=== PATIENT | male | born 1930 | race Caucasian/White ===

== ENCOUNTER 2018-07-09 05:35 | Outpatient (CLI) | payer MEDICARE ==
[~2018-07-09] VITALS: Ht 167.6 cm; Wt 72.6 kg
[2018-07-09] MEDS ORDERED: ALLO300T2 PO (12:40)
[2018-07-09] MEDS ORDERED: LEVO125T69 PO (12:46)
[2018-07-09] MEDS ORDERED: TEMA30CA PO (12:56)
[2018-07-09] MEDS ORDERED: GABA-488 PO (12:56)
[2018-07-09] MEDS ORDERED: METO-351 PO (12:56)
[2018-07-09] MEDS ORDERED: METF-397 PO (12:56)
[2018-07-09] MEDS ORDERED: SIMV80TA5 PO (12:56)
[2018-07-09] MEDS ORDERED: ASPI-586 PO (12:56)
[2018-07-09] MEDS ORDERED: MELA10TA2 PO (12:56)
[2018-07-09] MEDS ORDERED: WARF2.5T PO (12:56)
[2018-07-09] MEDS ORDERED: WARF5TAB PO (12:56)
== END 2018-07-09 13:01 | disposition home or self-care (01) ==
LOC: PREOP 05:35
PROVIDERS: ATTEND Orthopaedic Surgery
DX: Z01.818 Encounter for other preprocedural examination (principal)

== ENCOUNTER 2018-07-16 07:01 | Day surgery (SDC) | payer MEDICARE, OTHER ==
[~2018-07-16] VITALS: Ht 167.6 cm; Wt 72.6 kg
[~2018-07-16 07:01] MED LIST: ALLO300T2 PO; ASPI-586 PO; GABA-488 PO; LEVO125T69 PO; MELA10TA2 PO; METF-397 PO; METO-351 PO; SIMV80TA5 PO; TEMA30CA PO; WARF2.5T PO; WARF5TAB PO
[2018-07-16] MEDS ORDERED: ceFAZolin 2 GM IV Premixed 50 ML IV ONE (07:15)
[2018-07-16 07:20] VITALS: BP 113/86
[2018-07-16] MEDS ORDERED: CATHETER FLUSH 10 ML SYR IV PRN (07:30)
[2018-07-16] MEDS ORDERED: BUP/EPI 0.5% 1:200,000 (SENSORCAINE) 30 ML VIAL ONE (07:30)
[2018-07-16] MEDS ORDERED: VANCOMYCIN 1000 MG/VIAL ONE (07:31)
[2018-07-16] MEDS ORDERED: NS (IVPB) 0 ML ONE (07:33)
[2018-07-16] MEDS ORDERED: proPOfol 200 MG/20 ML (DIPRIVAN) VIAL IV ONE (07:33)
[2018-07-16] MEDS ORDERED: ONDANSETRON 4 MG/2 ML (SDV) Z0FRAN ONE (07:33)
[2018-07-16] MEDS ORDERED: SUCCINYLCHOLINE INJ 100 MG/5 ML SYR ONE (07:33)
[2018-07-16] MEDS ORDERED: fentaNYL INJECTION 100 MCG/2 ML AMP ONE (07:33)
[2018-07-16] MEDS ORDERED: ROCURONIUM 10 MG/ML 5 ML SYRINGE IV ONE (07:33)
[2018-07-16] MEDS ORDERED: LIDOCAINE PF 2% 5 ML (XYLOCAINE) VIAL ONE (07:33)
[2018-07-16] MEDS ORDERED: DEXMEDETOMIDINE 200 MCG/2 ML (PRECEDEX) VIAL IV ONE (07:33)
[2018-07-16] MEDS ORDERED: SEVOFLURANE (ULTANE) 15 ML INHAL SOLN ONE (07:33)
[2018-07-16] MEDS ORDERED: BACITRACIN 100,000 UNIT/NS 1000 ML POUR BOTTLE IR ONE ×2 (07:45)
[2018-07-16 07:50] LABS: INR 1.1 (0.8-1.4); PROTHROMBIN TIME PATIENT 13.8 SEC (12.2-14.7)
[2018-07-16] MEDS: LACTATED RINGERS 1,000 ML IV PRN ×3 (08:00→10:20)
[2018-07-16] MEDS ORDERED: PHENYLEPHRINE 100 MCG/ML 10 ML (ANESTHESIA) SYR ONE (09:08)
[2018-07-16] MEDS ORDERED: GLYCOPYRROLATE 0.2 MG/ML (ROBINUL) 2 ML VIAL ONE (09:26)
[2018-07-16] MEDS ORDERED: NEOSTIGMINE 1 MG/ML 5 ML SYRINGE ONE (09:26)
[2018-07-16] MEDS ORDERED: HYDR-4196 PO (09:45)
--- NOTE | 2018-07-16 09:47 | Discharge Inst-Simple/Standard ---
Discharge Inst-Standard Discharge Medications New, Converted or Re-Newed RX: RX on Chart Patient Instructions/Follow Up Plan of Care/Instructions/FU: resume warfarin and aspirin on 07/21/2018 dont bend lift twist push pull or reach 5lb weight restriction keep incision covered and dry Activity as Tolerated: No Discharge Diet: ADA Diet Return to The Hospital For: shortness of breath chest pain fever, chills new numbness, tingling, or weakness KAYLAH GOVEA Jul 16, 2018 09:47
[2018-07-16] MEDS ORDERED: ONDANSETRON 4 MG/2 ML (SDV) Z0FRAN IVP PRN (10:15)
[2018-07-16] MEDS ORDERED: morphine INJ 10 MG/ML 1ML (SYR OR VIAL) IVP ONE (10:15)
--- NOTE | 2018-07-16 11:10 | Diagnostic Imaging Report ---
Fluoroscopy at 9:26. Indication: Spinal cord stimulator device. Fluoroscopic assistance was provided for Dr. Perez during his spinal cord stimulator device insertion procedure. 14 seconds of fluoroscopy time was visualized. A single spot film of the thoracolumbar junction was obtained. There is a dorsal stimulator device in place with the leads overlying the T9-10 vertebral bodies. Impression: Fluoroscopic assistance was provided for Dr. Perez. Dictated by: Dictated on workstation # [id number]
[2018-07-16 12:10] VITALS: BP 102/67
[2018-07-16 12:40] VITALS: BP 110/75
[2018-07-16 13:10] VITALS: BP 98/68
[2018-07-16] MEDS ORDERED: HYDROcodone/APAP 10 MG/325 MG (LORTAB) TAB PO ONE (13:43)
[2018-07-16] MEDS ORDERED: HYDROcodone/APAP 10 MG/325 MG (LORTAB) TAB PO PRN (14:00)
--- NOTE | 2018-07-16 14:10 | Anesthesia-General Post-Op ---
General Patient Condition Mental Status/LOC: Same as Preop Cardiovascular: Satisfactory Nausea/Vomiting: Absent Respiratory: Satisfactory Pain: Controlled Complications: Absent Post Op Complications Complications None Follow Up Care/Instructions Patient Instructions None needed. Anesthesia/Patient Condition Patient Condition Patient is doing well, no complaints, stable vital signs, no apparent adverse anesthesia problems. No complications reported per nursing. D/C home per [facility] Criteria: Yes NAGA HERNANDEZ CRNA Jul 16, 2018 14:10
[2018-07-16 14:35] VITALS: BP 98/68
--- NOTE | 2018-07-16 18:53 | OPERATIVE REPORT ---
DATE OF SERVICE: 07/16/2018 SURGEON: Wilbur Perez DO. ORANGE PICKER MACHINE OPERATOR: MAGI Grier. This is a medically necessary procedure. Assistance was necessary for retraction of vital neurovascular structures. Without an land surveyor assistant, the procedure would not be possible. PREOPERATIVE DIAGNOSES: 1. Failed back surgery syndrome. 2. Lumbar radiculopathy. 3. Neuropathic pain. POSTOPERATIVE DIAGNOSES: 1. Failed back surgery syndrome. 2. Lumbar radiculopathy. 3. Neuropathic pain. PROCEDURES PERFORMED: 1. Placement of thoracic spinal cord stimulator paddle lead via thoracic laminotomies. 2. Placement of pulse generator through complex programming. COMPLICATIONS: None. DRAINS PLACED: None. ANESTHESIA: General endotracheal tube anesthesia with local anesthetic. SPECIMEN SENT: None. HISTORY OF PRESENT ILLNESS: The patient is a very pleasant 88-year-old gentleman who presented to me after a very successful percutaneous spinal cord stimulator trial. He wished to undergo placement of paddle lead. He understood the risks and benefits. DESCRIPTION OF PROCEDURE: The patient was identified by name on wrist band in the preoperative holding area. His operative site was signed, consent was signed. SCDs were placed. Neuromonitoring was hooked up and antibiotics were started. He was taken to the operating theater and placed under general endotracheal tube anesthesia and then transferred to the operating room table in the prone position. He was prepped and draped in usual sterile fashion. Formal timeout was conducted. Midline thoracic incision was then made, bilateral subperiosteal paraspinal muscular approach then took place, exposing the T10-11 interspace. I then used the high speed bur followed by Kerrison rongeurs to perform a laminotomy. I gained access to the epidural space. I then passed a Medtronic paddle lead in the midline position behind the body of T9, which was where the trial head then parked. I then anchored the lead into place. I then turned my attention to the right-sided flank incision. I made an incision. I developed a pocket bluntly. I used a tunneler to pass the lead from the thoracic wound to the lumbar wound. I then hooked up a pulse generator and finally tightened it. I verified adequate connection with the wrap. I buried that battery into the pocket. I irrigated both wounds, maintained hemostasis. Please note, I did anchor those leads in the thoracic fascia and closed utilizing #0 Vicryl followed by 2-0 Vicryl followed by running 3-0 subcuticular stitch. I applied dressings and took the patient in the supine position in the PACU where he awoke without incident. He tolerated the procedure well. PLAN: At this time is to discharge the patient today. I will see the patient back in two weeks. He is to avoid any bending, twisting, pushing or pulling. He knows to keep his wound clean and dry. Please note, instrumentation used was Medtronic spinal cord stimulator system. Also note, neuromonitoring was stable throughout the procedure. Job ID: [id number] DocumentID: [id number] Dictated Date: 07/16/2018 09:41:26 Bar Captain Date: 07/16/2018 18:53:12 Dictated By: WILBUR PEREZ DO
--- NOTE | 2018-07-16 23:17 | OPERATIVE REPORT ---
DATE OF SERVICE: 07/16/2018 SURGEON: Anatoliy Perez DO TABLE ASSEMBLER: Warner SOW. This is a medically necessary procedure. Assistance was necessary for retraction of vital neurovascular structures. Without an seed analysis laboratory assistant, the procedure would not be possible. PREOPERATIVE DIAGNOSES: 1. Failed back surgery syndrome. 2. Lumbar radiculopathy. 3. Neuropathic pain. POSTOPERATIVE DIAGNOSES: 1. Failed back surgery syndrome. 2. Lumbar radiculopathy. 3. Neuropathic pain. PROCEDURE PERFORMED: 1. Placement of thoracic spinal cord stimulator paddle lead via thoracic laminotomies. 2. Placement of pulse generator. 3. Complex programming. COMPLICATIONS: None. SPECIMENS SENT: None. ESTIMATED BLOOD LOSS: Minimal. ANESTHESIA: General endotracheal tube anesthesia with local anesthetic. HISTORY OF PRESENT ILLNESS: The patient presented to me after a very successful percutaneous trial, did wish to undergo permanent placement of spinal cord stimulator lead. He understood the risks and benefits, especially concerning his advanced age and he did wish to proceed. DESCRIPTION OF PROCEDURE: The patient was identified by name on wrist band in the preoperative holding area. The operative site was signed, consent was signed. SCDs were placed. Nerve monitoring was hooked up and antibiotics were started. He was taken to the operating room theater and placed under general endotracheal tube anesthesia and then transferred to the operating room table in the prone position. He was prepped and draped in usual sterile fashion. Formal timeout was conducted. At this point, an AP x-ray was brought in and marked out my pedicles in the thoracic spine. I made a midline thoracic incision. I did perform bilateral subperiosteal paraspinal muscular approach exposing the posterior elements. At this point, I used the high speed maulik and Kerrison rongeurs to perform a T9-T10 laminotomy. I gained access to the epidural space and then placed a [place] Penta lead in the midline position behind the body of T8. I then anchored that lead in the thoracic fascia. I then turned my attention to the pulse generator pocket on the right side in the flank. I made an incision and developed a pocket bluntly. I then used a tunneler to tunnel the leads from the thoracic wound to the lumbar wound. I then hooked up a pulse generator. Final tightened that pulse generator and assessed the connectivity and there was a good connection. Therefore, I buried the pulse generator with the redundant lead in that wound. I irrigated both wounds. I caressed one gram of vancomycin powder throughout both wounds. I maintained hemostasis and I closed them utilizing 0 Vicryl, followed by 2-0 Vicryl, followed by running 3-0 subcuticular stitches. I applied dressings, took the patient in the supine position to the PACU where he awoke without incident. He tolerated the procedure well. The plan at this time is to discharge the patient today. I will see him back in two weeks and is to avoid any bending, twisting, pushing, pulling. Keep his wounds clean and dry. Please note, instrumentation utilized was [place] Penta lead, [place] pulse generator. Also note, neuro monitoring was stable throughout the procedure. Job ID: [id number] DocumentID: [id number] Dictated Date: 07/16/2018 12:50:06 Log Rider Date: 07/16/2018 23:16:51 Dictated By: ANATOLIY PEREZ DO
== END 2018-07-16 14:45 | disposition home or self-care (01) ==
LOC: SDC 07:01
PROVIDERS: ATTEND Orthopaedic Surgery
DX: M54.16 Radiculopathy, lumbar region (principal); G89.4 Chronic pain syndrome; I10 Essential (primary) hypertension; I25.10 Atherosclerotic heart disease of native coronary artery without angina pectoris; E78.5 Hyperlipidemia, unspecified; I48.91 Unspecified atrial fibrillation; E11.9 Type 2 diabetes mellitus without complications; Z86.73 Personal history of transient ischemic attack (TIA), and cerebral infarction without residual deficits; Z95.5 Presence of coronary angioplasty implant and graft; Z95.0 Presence of cardiac pacemaker; Z79.899 Other long term (current) drug therapy; Z79.84 Long term (current) use of oral hypoglycemic drugs; Z79.82 Long term (current) use of aspirin; Z79.01 Long term (current) use of anticoagulants; Z11.2 Encounter for screening for other bacterial diseases; M96.1 Postlaminectomy syndrome, not elsewhere classified
CPT/HCPCS: 36415; 82962; 85610; 87081